=== PATIENT | female | born 1945 | race Caucasian/White ===

== ENCOUNTER 2018-11-01 03:31 | Inpatient (IN) ==
[2018-10-25 08:11] LABS: URINE SOURCE CLEAN CATCH
--- NOTE | 2018-10-25 08:41 | EKG Report ---
Test Performed on : 10/25/2018 07:45:15 AM Test Reason : PAT Blood Pressure : / mmHG Vent. Rate : 066 BPM Atrial Rate : 066 BPM P-R Int : 134 ms QRS Dur : 072 ms QT Int : 430 ms P-R-T Axes : 057 001 043 degrees QTc Int : 450 ms Normal sinus rhythm. Normal ECG When compared with ECG of 22-NOV-2011 12:01, Questionable change in QRS axis Nonspecific T wave abnormality now evident in Anterior leads Confirmed by Lauren ANTONIO, Rashad Banegas ([id number]) on 10/25/2018 3:27:45 PM
[2018-10-25 08:56] LABS: BILIRUBIN URINE NEGATIVE (NEGATIVE); BLOOD URINE NEGATIVE (NEGATIVE); COLOR YELLOW; GLUCOSE URINE NEGATIVE (NEGATIVE); HEMOGLOBIN 14.6 g/dL (12.0-16.0); KETONE URINE NEGATIVE (NEGATIVE); LEUKOCYTES URINE NEGATIVE (NEGATIVE); NITRITE URINE NEGATIVE (NEGATIVE); PH URINE 6.5; PROTEIN URINE NEGATIVE (NEGATIVE); RBC 5.36 XMIL (4.2-5.4); SP GRAVITY URINE 1.011; TURBIDITY URINE CLEAR (CLEAR); UROBILINOGEN URINE NORMAL (NORMAL); WBC 7.53 X1000 (4.8-10.8)
[2018-10-25 08:57] LABS: BASO# 0.03 X1000 (0.0-0.2); BASO% 0.4 % (0.0-0.8); EOS# 0.22 X1000 (0.0-0.7); EOS% 2.9 % (0.0-10.0); HEMATOCRIT 45.7 % (37.0-47.0); IMM GRAN# 0.03 X1000 (0.0-0.04); IMM GRAN% 0.4 % (0.0-0.5); LYMPH# 2.09 X1000 (1.2-3.4); LYMPH% 27.8 % (20.5-51.1); MCH 27.2 PG (27-31); MCHC 31.9 g/dL (33-37); MCV 85.3 FL (81-99); MONO# 0.76 X1000 (0.11-0.59); MONO% 10.1 % (1.7-9.3); MPV 10.9 FL (7.4-10.4); NEUT% 58.4 % (42.2-75.2); PLT 392 X1000 (130-400); RDW 14.5 % (11.5-14.5)
[2018-10-25 08:58] LABS: UR EPITHELIAL CELLS <10 /HPF (<10); URINE BACTERIA NEGATIVE /HPF; URINE RBC <10 /HPF (<10); URINE WBC <10 /HPF (<10)
[2018-10-25 09:04] LABS: INR 0.87; PROTIME 12.6 Seconds (11.0-16.0); PTT 23.5 Seconds (22.3-41.8)
[2018-10-25 09:21] LABS: AGAP 10; BUN 20 mg/dL (8-22); CALCIUM 9.5 mg/dL (8.8-10.2); CHLORIDE 98 mmol/L (98-107); COSMO 281; CREATININE 0.9 mg/dL (0.5-0.9); ESTIMATED GFR > 60; GLUCOSE 111 mg/dL (70-104); POTASSIUM 4.1 mmol/L (3.5-5.1); SODIUM 139 mmol/L (136-145); TCO2 31 mmol/L (25-35)
[2018-11-01] MEDS ORDERED: XYLOCAINE-MPF 2% ONE (06:14)
[2018-11-01] MEDS ORDERED: QUELICIN (DOSE) ONE (06:14)
[2018-11-01] MEDS ORDERED: DIPRIVAN 1% ONE (06:14)
[2018-11-01] MEDS ORDERED: FENTANYL ONE (06:14)
[2018-11-01] MEDS ORDERED: LR 500 ML ONE (06:16)
[2018-11-01] MEDS ORDERED: LYRICA ONE (06:16)
[2018-11-01] MEDS ORDERED: CELEBREX ONE (06:16)
[2018-11-01] MEDS ORDERED: PEPCID ONE (06:16)
[2018-11-01] MEDS ORDERED: REGLAN ONE (06:16)
[2018-11-01] MEDS ORDERED: COLACE ONE (06:16)
[2018-11-01] MEDS ORDERED: KEFZOL 1 GM/D5W 2 GM/100 ML IVPB ONE (06:17)
[2018-11-01] MEDS ORDERED: MARCAINE 0.25% PF ONE (06:49)
[2018-11-01] MEDS ORDERED: DURAMORPH ONE (06:49)
[2018-11-01] MEDS ORDERED: TORADOL ONE (06:49)
[2018-11-01] MEDS ORDERED: CYKLOKAPRON 1,000 MG/NS 1,000 MG/100 ML IVPB ONE (06:49)
[2018-11-01] MEDS ORDERED: SODIUM CHLORIDE 0.9% ONE (06:49)
[2018-11-01] MEDS ORDERED: NEOSPORIN G.U. IRRIGANT ONE (06:50)
[2018-11-01] MEDS ORDERED: EXPAREL 1.3% ONE (06:50)
[2018-11-01] MEDS ORDERED: DECADRON ONE (08:27)
[2018-11-01] MEDS ORDERED: ZOFRAN ONE (08:27)
[2018-11-01] MEDS ORDERED: OFIRMEV 1000 MG/ISOTONIC SOLN 1,000 MG/100 ML BOTTLE ONE (08:27)
[2018-11-01 09:05] LABS: URINE SOURCE CATH
[2018-11-01 09:12] LABS: BILIRUBIN URINE NEGATIVE (NEGATIVE); BLOOD URINE NEGATIVE (NEGATIVE); COLOR YELLOW; GLUCOSE URINE NEGATIVE (NEGATIVE); KETONE URINE NEGATIVE (NEGATIVE); LEUKOCYTES URINE NEGATIVE (NEGATIVE); NITRITE URINE NEGATIVE (NEGATIVE); PROTEIN URINE NEGATIVE (NEGATIVE); SP GRAVITY URINE 1.013; TURBIDITY URINE CLEAR (CLEAR); UROBILINOGEN URINE NORMAL (NORMAL)
[2018-11-01 09:13] LABS: UR EPITHELIAL CELLS <10 /HPF (<10); URINE BACTERIA NEGATIVE /HPF; URINE RBC <10 /HPF (<10); URINE WBC <10 /HPF (<10)
[2018-11-01] MEDS ORDERED: MORPHINE ONE ×2 (09:27→09:50)
[2018-11-01] MEDS ORDERED: NS 1,000 ML ONE (09:36)
--- NOTE | 2018-11-01 10:08 | OPERATIVE NOTE ---
PROCEDURE DATE: 11/01/2018 PREOPERATIVE DIAGNOSIS: Right degenerative glenohumeral arthritis. POSTOPERATIVE DIAGNOSIS: Right degenerative glenohumeral arthritis. OPERATION: Right reverse shoulder arthroplasty with DePuy Delta Xtend size 10 press-fit stem, a 38+ 3 humeral cup, 38 eccentric Glenosphere and a standard Metaglene. SURGEONS: Petra Hurtado BACK HAND: [employer] SENIOR JAVA WEB DEVELOPER: Bon Garcia RN. ANESTHESIA: General. IV FLUIDS: 500 mL lactated Ringer's. ESTIMATED BLOOD LOSS: 200 mL. COMPLICATIONS: None. INDICATION: The patient is a 73-year-old female with chronic history of worsening pain and discomfort in the right shoulder. Continued pain and discomfort despite appropriate nonoperative treatment. X-rays revealed degenerative arthritis. Recommendation to proceed with right reverse total shoulder arthroplasty was offered. Risks of surgery were explained, including the risks of anesthesia, , bleeding, infection, failure to relieve pain, postop stiffness nerve injury, blood clots, and other imponderables. All questions were answered. Patient and family wished to proceed with surgery. DETAILS OF OPERATION: The patient was taken to the operating room and placed supine on the operating table. Once adequate anesthesia was obtained, patient placed in semi-Jon beach-chair position. The right shoulder was subsequently prepped and draped in usual sterile fashion. A standard deltopectoral incision made with skin knife. Medial and skin envelopes were developed. A standard deltopectoral incision was made. Hemostasis was obtained using electrocautery. The deltopectoral interval was then developed. Retractor was then placed. Elevation of the clavipectoral fascia was then performed. Attention then turned to the subscapular tendon and stay sutures placed. Approximately 1 cm medial to the insertion it was released. Further release of the superior aspect of the rotator cuff was performed as well. A starting reamer was then passed into the intramedullary canal. This was sequential reamed up to a size 10. Intramedullary guide with a proximal humeral cutting block was pinned in position approximately 15 degrees of retroversion. The humeral head was then resected. A protective disk was then placed. Attention was then turned to the glenoid. Circumferential dissection was then performed with a deep knife. A guide was then placed in position. Guide pin was then placed. Reaming was then conducted. The central hole was then dilated. The wound was copiously with antibiotic pulsatile lavage. A standard Metaglene was then impacted and had good purchase. Two locking screws were placed and 2 nonlocking screws. The wound was copiously irrigated once again. A 38 eccentric then sphere was then eccentricity placed inferiorly. Attention was then turned to the humerus and guide was placed in position and the proximal humerus was reamed. After this was performed intramedullary canal was copiously irrigated with antibiotic pulsatile lavage. A size 10 press-fit stem was then placed with autologous bone impaction bone grafting. Good purchase was obtained. Trial cup was then placed, 38 +3 humeral cup, had excellent stability and range of motion. The trial cup was removed. The wound was copiously irrigated. A size 38+ 3 humeral cup was then placed. Impacted on the stem. The shoulder was reduced, carried through range of motion with excellent stability and range of motion. After this had been performed, the Exparel was placed in deep soft tissue. The wound was copiously with antibiotic pulsatile lavage. The subscapularis tendon was repaired with #2 FiberWire. The remaining the Exparel was placed in deep soft tissue, as well as subcutaneous tissue. The wound was copiously irrigated once again. A 2-0 Vicryl was used to repair the subcutaneous tissue, followed by running 2-0 Prolene. Benzoin and Steri-Strips were applied. Adaptic, sterile 4 x 4, ABD pad, and tape was applied to the right shoulder, followed by shoulder immobilizer. All counts correct. Patient tolerated the procedure well. She was transferred to the recovery room in stable condition. cc: Vicente Calero MD
[2018-11-01] MEDS ORDERED: OXY IR PO PRN (10:15)
[2018-11-01] MEDS ORDERED: MORPHINE IV PRN ×3 (10:15)
--- NOTE | 2018-11-01 10:23 | Diag Imaging Result Doc PS360 ---
SHOULDER 1 VIEW RIGHT - 11/01/2018 INDICATION: right TSA TECHNIQUE: COMPARISON: None FINDINGS: There has been right total shoulder arthroplasty. Alignment is anatomic. No hardware fracture or loosening. IMPRESSION: No complication. Electronically signed by Chay Davila 11/01/2018 10:21 AM
[2018-11-01] MEDS: TOPROL XL PO SCH ×2 (11:30→21:24)
[2018-11-01] MEDS: BREO ELLIPTA 200/25 MCG INH INH SCH (12:00)
[2018-11-01] MEDS: NEURONTIN PO SCH ×2 (12:02→21:24)
[2018-11-01] MEDS: LASIX PO SCH (12:02)
[2018-11-01] MEDS: LIORESAL PO SCH ×2 (12:02→21:25)
[2018-11-01] MEDS: NS 1,000 ML IV SCH (12:03)
[2018-11-01] MEDS: LEXAPRO PO SCH (12:03)
[2018-11-01] MEDS: ASPIRIN EC PO SCH (12:03)
[2018-11-01] MEDS ORDERED: CYKLOKAPRON 1,000 MG in NS 100 ML IV ONE (13:35)
[2018-11-01] MEDS: KEFZOL 2 GM/D5W 2 GM/50 ML IVPB IV SCH ×2 (15:23→22:40)
[2018-11-01] MEDS: ZOFRAN PO PRN ×2 (16:10→21:25)
[2018-11-01] MEDS: DUONEB (A & A) INH PRN ×2 (19:15→23:05)
--- NOTE | 2018-11-01 20:00 | CONSULTATION ---
DATE OF CONSULTATION: 11/01/2018 REFERRING PHYSICIAN: Dr. Calero. REASON FOR CONSULT: Medical management. HISTORY OF PRESENT ILLNESS: Ms. Herbert is a 73-year-old, white female patient with multiple medical problems, had a right shoulder surgery for course osteoarthritis and chronic pain not responding to medical management. The patient underwent surgery this morning. I was consulted because of her multiple medical problems, including hypertension, chronic respiratory failure, COPD, history suggestive of coronary artery disease, hypertension, and restless legs syndrome. Since surgery, the patient is doing fair. The patient does have mild shortness of breath and wheezing. No unusual expectoration. Denied any hemoptysis. No typical chest pain, palpitation, orthopnea, or PND. Occasional dull headache. No blurred vision. Complaining of inability to urinate. Patient had a Rose catheter which is supposed to be removed in the morning, but patient insisted to be removed tonight. Nurses removed catheter at 25 minutes ago and patient claims she cannot void. No abdominal pain. She denied any diarrhea, blood, or mucus in the stool. At times epigastric discomfort and heartburn. The patient denied any typical chest pain. No heat or cold intolerance. The patient does have problem with sleep for which the patient is on Ambien. Without Ambien patient is not able to sleep. The patient does have symptoms suggestive of peripheral neuropathy. Complaining of symptoms of depression, unquantified weight gain, polyuria, polydipsia. No suicidal or homicidal ideation. The patient had a fall many months ago. ALLERGIES: No known drug allergy. MEDICATIONS: Ambien, Requip, Toprol-XL, Neurontin, Lasix, Breo, Lexapro, baclofen, aspirin, Zestoretic, ProAir HFA. The patient is on nebulizer treatment. PAST MEDICAL HISTORY: Hypertension, COPD, peripheral neuropathy, muscle spasm, situational depression, leg swelling, hyperlipidemia not able to tolerate statins, insomnia, morbid obesity, gastritis and reflux disease. PERSONAL HISTORY: Single, nonsmoker. Denied alcohol or substance abuse. REVIEW OF SYSTEMS: As per HPI. Otherwise unobtainable. FAMILY HISTORY: Noncontributory. PHYSICAL EXAMINATION: General: Elderly white female patient in mild distress. Vital Signs: Blood pressure 119/54, pulse 72, respirations 20, temperature 97.1, O2 saturation noted. Skin: Senile turgor. No rash or petechiae. HEENT: Head atraumatic, normocephalic. [place] conjunctivae. Anicteric sclerae. Extraocular muscle movement normal. Fundus cannot be penetrated. Good oral hygiene. No tonsillopharyngeal congestion or exudate. Ears and nose benign. Neck: Supple. No JVD, thyromegaly or lymphadenopathy. Chest: Bibasilar crepitation occasional wheezing. Cardiovascular: S1 and S2 heard. No gallop or thrill. Abdomen: Soft, globular. Bowel sounds present. No organomegaly or mass. Extremities: Patient does have a dressed wound on the right upper limb and shoulder. No acute DVT in the legs. PNEUMATIC TUBE FITTER: Alert, awake answering questions fairly well. Able to move all 4 limbs. CONSIDERATION: Patient's medical problem includes: 1. Hypertension. Doing well with current treatment. 2. Chronic obstructive pulmonary disease. We will continue bronchodilator treatment. 3. Hyperlipidemia. Not able to tolerate any lipid lower aching agent. 4. Osteoarthritis. 5. Morbid obesity. 6. Muscle spasm. 7. Insomnia. 8. History suggestive of congestive heart failure. 9. Peripheral neuropathy. 10. Restless legs syndrome. PLAN: Patient's current medication reviewed and continued. Fall precaution. Bronchodilator treatment. We will hold on the straight catheter. Overall plan discussed with the patient. I had a nebulizer treatment and incentive spirometry. Check appropriate labs. cc: MD Vicente Garrett MD
[2018-11-01] MEDS ORDERED: REQUIP PO SCH (21:00)
[2018-11-01] MEDS ORDERED: AMBIEN PO SCH (21:00)
[2018-11-01] MEDS: OXY IR PO PRN (21:24)
[2018-11-01] MEDS: PERIDEX MT SCH (21:24)
[2018-11-02] MEDS: DUONEB (A & A) INH PRN ×2 (03:25→07:46)
[2018-11-02] MEDS: NS 1,000 ML IV SCH (03:32)
[2018-11-02 06:14] LABS: HEMATOCRIT 37.8 % (37.0-47.0); HEMOGLOBIN 12.3 g/dL (12.0-16.0)
[2018-11-02 06:33] LABS: CALCIUM 8.5 mg/dL (8.8-10.2); CREATININE 1.2 mg/dL (0.5-0.9); POTASSIUM 4.2 mmol/L (3.5-5.1)
--- NOTE | 2018-11-02 07:00 | PROGRESS NOTE ---
DATE: 11/02/2018 SUBJECTIVE: Ms. Herbert is doing better. Mild cough. No expectoration. Denied any fever or chills. The patient was able to void well after we removed Rose catheter yesterday. No diarrhea, blood or mucus in the stool. The patient claims to gain her baseline status. Known case of COPD, hypertension, hyperlipidemia, and peripheral neuropathy. Patient had right shoulder surgery yesterday. OBJECTIVE: Vital Signs: Noted. Neck: Supple. No JVD. Lungs: Bibasilar crepitations with occasional wheezing. Cardiovascular: S1 and S2 heard. Abdomen: Soft, globular. Bowel sounds present. Extremities: No cyanosis or clubbing. No acute DVT. Neck: Supple. No JVD. Lungs: Bilateral good air entry present. Occasional wheezing. CVS: S1 and S2 heard. Abdomen: Soft and globular. Bowel sounds present. Extremities: No cyanosis or clubbing. No acute DVT. DEADENER: Alert, awake, and able to move all 4 limbs. LABORATORY STUDIES: Hemoglobin done this morning was 12.3, hematocrit 37.8, BUN 28, and creatinine 1.2. Sodium 135, potassium 4.2. ASSESSMENT AND PLAN: Overall, patient is doing better and eager to go home. Her problems include COPD . Encourage patient to use nebulizer treatment regularly. Peripheral neuropathy. Muscle spasm. Hypertension. Labs and medication noted. We will continue current treatment. Close observation. cc: MD Vicente Garrett MD
[2018-11-02] MEDS: BREO ELLIPTA 200/25 MCG INH INH SCH (07:46)
[2018-11-02] MEDS: OXY IR PO PRN (08:13)
[2018-11-02] MEDS: TOPROL XL PO SCH (08:14)
[2018-11-02] MEDS: ZOFRAN PO PRN (08:14)
[2018-11-02] MEDS: LIORESAL PO SCH (08:14)
[2018-11-02] MEDS: ASPIRIN EC PO SCH (08:14)
[2018-11-02] MEDS: LEXAPRO PO SCH (08:15)
[2018-11-02] MEDS: NEURONTIN PO SCH (08:15)
[2018-11-02] MEDS: PERIDEX MT SCH (08:15)
[2018-11-02] MEDS: LASIX PO SCH (08:15)
--- NOTE | 2018-11-02 10:08 | DISCHARGE SUMMARY ---
ADMISSION DATE: 11/01/2018 DISCHARGE DATE: 11/02/2018 DISCHARGE DIAGNOSIS: Right degenerative glenohumeral arthritis status post right reverse shoulder arthroplasty. DISCHARGE MEDICATIONS: See discharge medication list. DISPOSITION: The patient is discharged home with home health. DISCHARGE INSTRUCTIONS: Instructions for reverse total shoulder arthroplasty protocol. Instructed to return to see Dr. Calero in 10 to 14 days. HOSPITAL COURSE: On the day of admission, patient underwent a right reverse shoulder arthroplasty. Her postoperative course was unremarkable. At discharge she is afebrile, tolerating regular diet, and ambulating well with physical therapy. Her right shoulder dressing is clean, dry, and intact. At discharge, her hemoglobin. 12.3 and hematocrit is 37.8. She is discharged home in stable condition with instructions to followup as described above. Dictated by TORRES Recio for Vicente Calero MD cc: TORRES Recio MD
[2018-11-02] MEDS ORDERED: PNEUMOVAX 23 IM ONE (11:00)
[2018-11-02 11:35] VITALS: BP 124/73
== END 2018-11-02 11:38 | disposition home health service (06) | DRG 483 ==
LOC: SURHOLD 03:31 → 4N 07:58
PROVIDERS: ADMIT Orthopaedic Surgery Adult Reconstructive Orthopaedic Surgery; ATTEND Orthopaedic Surgery Adult Reconstructive Orthopaedic Surgery
CPT/HCPCS: 73020; 80048; 81001; 85014; 85018; 85025; 85610; 85730; 86850; 86900; 86901; 88305; 88311; 90732; 94640; 94760; 94761; 94799; 97162; 97530; A9270; C1713; C9290; J0131; J0330; J0690; J1100; J1885; J2270; J2274; J2275; J2405; J3010; J7030; J7120; Q9974; S0020